=== PATIENT | male | born 1990 | race Caucasian/White ===

== ENCOUNTER 2017-03-18 21:45 | Emergency (ER) | payer OTHER ==
[~2017-03-18] VITALS: Ht 177.8 cm; Wt 70.8 kg
[2017-03-18 21:53] VITALS: BP 123/73; PULSE 80; RESP 14; TEMP 97.9; O2SAT 97
--- NOTE | 2017-03-18 22:46 | RADRPT ---
EXAM DATE/TIME: 03/18/2017 22:19 [place] COMPARISON: No previous studies available for comparison. INDICATIONS : Right hand pain post fall. Patient states pain at fourth and fifth. MEDICAL HISTORY : None. SURGICAL HISTORY : None. ENCOUNTER: Initial ACUITY: 2 days PAIN SCORE: 6/10 LOCATION: Right hand. FINDINGS: Three view examination of the right hand demonstrates the bones and joints to be normally aligned. On one view, the oblique view, there are some subtle lucencies seen at the distal medial aspect of the hamate potentially representing some fracturing. No other potential fractures are seen throughout the right hand. CONCLUSION: Possible fracturing at the distal medial aspect of the hamate. Filemon Sanders MD on March 18, 2017 at 22:42 Board Certified Radiologist. This report was verified electronically.
--- NOTE | 2017-03-18 22:53 | PD ---
HPI Chief Complaint: Injury Time Seen by Provider: 22:18 Travel History International Travel<30 days: No Contact w/Intl Traveler<30days: No Traveled to known affect area: No History of Present Illness HPI 26-year-old male presents to the emergency room for evaluation of right hand pain after injuring it last night. Patient fell on cobblestone and his hand got caught between 2 large cobblestones. States all of his weight fell into his hand. Pain is localized to the fifth metacarpal without radiation. No wrist pain. Denies significant pain at rest. He reports pain with gripping, grasping. He took 800 mg ibuprofen today without any relief in symptoms. There is associated paresthesias in the fourth and fifth digits. No chronic medical conditions or daily medications. PFSH Past Medical History Musculoskeletal: Yes (broken l femur when pt was 9) Tetanus Vaccination: > 5 Years Influenza Vaccination: No Social History Alcohol Use: Yes (occ) Tobacco Use: No Substance Use: No Allergies-Medications (Allergen,Severity, Reaction): Coded Allergies: No Known Allergies (Unverified , 03/18/17) Reported Meds & Prescriptions Reported Meds & Active Scripts Active No Active Prescriptions or Reported Medications Review of Systems Except as stated in HPI: all other systems reviewed are Neg Physical Exam Narrative GENERAL: Well-nourished, well-developed patient. SKIN: Focused skin assessment warm/dry. Extreme ecchymosis over the fourth and fifth right metacarpals. HEAD: Normocephalic. EYES: No scleral icterus. No injection or drainage. NECK: Supple, trachea midline. No JVD or lymphadenopathy. CARDIOVASCULAR: Regular rate and rhythm without murmurs, gallops, or rubs. RESPIRATORY: Breath sounds equal bilaterally. No accessory muscle use. MUSCULOSKELETAL: No cyanosis. Moderate to severe edema especially over the right fifth metacarpal. Less than 2 second capillary refill distally. 2+ her pulse. Radial, ulnar, and median nerves intact. Tenderness to palpation of the fifth metacarpal. Data Data Last Documented VS Vital Signs Date Time Temp Pulse Resp B/P (MAP) Pulse Ox O2 Delivery O2 Flow Rate FiO2 03/18/17 21:53 97.9 80 14 123/73 (90) 97 Orders Orders Hand, Complete ([id number]) (03/18/17 ) [facility] Medical Decision Making Medical Screen Exam Complete: Yes Emergency Medical Condition: Yes Medical Record Reviewed: Yes Differential Diagnosis Fracture, contusion, hematoma Narrative Course 26-year-old male presents to the emergency room for evaluation of right hand pain and swelling after injuring it last night. Patient fell and his right hand. Denies any other injuries. Right upper extremities neurovascularly intact with 2+ radial pulse. Radial, ulnar, and median nerves intact. There is moderate edema and ecchymosis and localized pain over the right fifth metacarpal. X-ray shows possible nondisplaced hamate fracture. Patient placed in an ulnar gutter splint told to follow-up with a primary care physician or return to the emergency room for worsening symptoms. He understands and agrees to plan. Diagnosis Primary Impression: Closed hamate fracture Qualified Codes: S62.144A - Nondisplaced fracture of body of hamate [unciform ] bone, right wrist, initial encounter for closed fracture Referrals: Primary Care Physician Departure Forms: Tests/Procedures, Work Release Special Instructions: Please excuse patient from work until cleared by primary care physician or hand surgeon. Additional Instructions: Rest and drink plenty of fluids. Keep splint on until follow-up. Take ibuprofen with food as directed, as needed for pain. Apply ice to the affected area for 20 minutes at a time, as needed for pain and swelling. Follow-up with a primary care physician within one week. Return to the emergency room for worsening symptoms. Med/Other Pt SpecificInfo: Prescription(s) given Scripts No Active Prescriptions or Reported Meds Disposition: 01 DISCHARGE HOME Condition: Stable Brielle Mcpherson Mar 18, 2017 22:53
== END 2017-03-18 23:14 | disposition home or self-care (01) ==
LOC: PHEFT 21:45
DX: S62.144A Nondisplaced fracture of body of hamate [unciform] bone, right wrist, initial encounter for closed fracture (principal); W23.0XXA Caught, crushed, jammed, or pinched between moving objects, initial encounter
CPT/HCPCS: 73130; 99283